=== PATIENT | female | born 1980 | race African-American/Black ===

== ENCOUNTER 2016-08-21 05:47 | Inpatient (IN) | payer OTHER ==
[2016-08-19 15:14] LABS: % IMMATURE GRANULYOCYTES 0.4 % (0.0-1.1); ABSOLUTE IMMATURE GRANULOCYTES 0.02 10^3/uL (0.00-0.10); ADD DIFF? NO; ADD MORPH? NO; ADD SCAN? NO; ATYPICAL LYMPHOCYTE FLAG 20 (0-99); FRAGMENT RBC FLAG 0 (0-99); HEMATOCRIT 37.8 % (38.0-47.0); HEMOGLOBIN 13.1 g/dL (12.6-16.3); LEFT SHIFT FLG 0 (0-99); LIPEMIA HEMOLYSIS FLAG 90 (0-99); MEAN CELL HEMOGLOBIN 28.1 pg (27.9-34.1); MEAN CELL HEMOGLOBIN CONCENTR. 34.7 g/dL (32.4-36.7); MEAN CELL VOLUME 80.9 fL (81.5-99.8); MEAN PLATELET VOLUME 9.5 fL (8.7-11.7); PLATELET CLUMPS FLAG 0 (0-99); PLATELET COUNT 278 10^3/uL (150-400); RED BLOOD CELL COUNT 4.67 10^6/uL (4.18-5.33); RED CELL DISTRIBUTION WIDTH 14.1 % (11.5-15.2)
[2016-08-21] MEDS ORDERED: LIDOCAINE 1% 2 ML INJ ONE (05:53)
[2016-08-21] MEDS ORDERED: LR 1,000 ML IV ONE (06:00)
[2016-08-21] MEDS ORDERED: ceFAZolin 2 GM/DEXTROSE 100 ML IV ONE (06:00)
[2016-08-21] MEDS ORDERED: PHENAZOPYRIDINE HCL 200 MG TAB PO ONE (06:00)
[2016-08-21] MEDS ORDERED: BUPIVACAINE/EPI 0.5% 30 ML SDV ONE (06:45)
[2016-08-21] MEDS ORDERED: VASOPRESSIN 20 UNIT/ML VIAL ONE (06:45)
[2016-08-21] MEDS ORDERED: MIDAZOLAM 2 MG/2 ML VIAL ONE (07:05)
[2016-08-21] MEDS ORDERED: PROPOFOL 200 MG/20 ML VIAL ONE ×2 (07:10→07:50)
[2016-08-21] MEDS ORDERED: fentaNYL 250 MCG/5 ML INJ ONE (07:10)
[2016-08-21] MEDS ORDERED: SURGIFLO MATRIX KIT WITH THROMBIN TP ONE (11:37)
[2016-08-21] MEDS ORDERED: ONDANSETRON 4 MG/2 ML VIAL IVP PRN (11:59)
[2016-08-21] MEDS ORDERED: LR 1,000 ML IV SCH (12:00)
--- NOTE | 2016-08-21 12:03 | POSTOPPROG ---
Post Op Note Date of Operation: 08/21/16 Surgeon: Kehinde Chaney Pool Table Mechanic: Albina Shahid Anesthesia: GET(General Endotracheal) Pre-op Diagnosis: Uterine fibroids, menorrhagia Post-op Diagnosis: Same Procedure: Robotic myomectomies, bilat hypogastric a. ligation, bilat ureterolysis Findings: Fibroids Inf/Abcess present in the surg proc area at time of surgery?: No EBL: 100-500 (500 EBL) Complications: None
[2016-08-21] MEDS ORDERED: fentaNYL 100 MCG/2 ML INJ ONE (12:28)
[2016-08-21] MEDS ORDERED: HYDROmorphONE/DILAUDID 1 MG/ML SYR ONE (12:29)
--- NOTE | 2016-08-21 13:09 | GOP ---
[f rep st] OPERATIVE REPORT DATE OF OPERATION: 08/21/2016 SURGEON: Kehinde Chaney MD ECOLOGIST: Albina Shahid CFA ANESTHESIA: General. PREOPERATIVE DIAGNOSIS: 1. Multiple uterine fibroids. 2. Menorrhagia. 3. Pelvic pain. POSTOPERATIVE DIAGNOSIS: 1. Multiple uterine fibroids. 2. Menorrhagia. 3. Pelvic pain. PROCEDURE PERFORMED: 1. Hysteroscopy. 2. Robotic-assisted laparoscopic myomectomy of multiple fibroids. 3. Bilateral hypogastric artery ligation. 4. Bilateral ureterolysis. FINDINGS: SPECIMENS: Uterine fibroids. ESTIMATED BLOOD LOSS: 500 mL. DESCRIPTION OF PROCEDURE: The patient was taken to the operating room where she was identified. Ge neral anesthesia was administered and found to be adequate. She was placed in the lithotomy positio n and prepared and draped in normal sterile fashion. A diagnostic hysteroscopy was performed to kaitlin luate the submucous component of her fibroids. She had several fibroids that did have a submucous c omponent, but most of the remaining fibroid appeared to be intramural. A Compass-EOSare uterine manipulator was then placed, followed by Davey catheter. A 1 cm midline incision was made approximately 6 cm above the umbilicus. The Veress needle with the CO2 gas flowing was advanced into the peritoneal cavity. The abdomen was then insufflated with car bon dioxide gas. The 12 mm trocar, followed by the laparoscope, was then inserted. The upper abdom en was unremarkable. The patient had a very enlarged multiple fibroid uterus. The ovaries and tube s otherwise were unremarkable. Two lateral ports were placed in the right and 1 on the left under d irect visualization. She then was placed in Trendelenburg position and the da Jeanine robot docked on the left side. The instruments were then brought into the abdominal cavity under direct visualizat ion. The uterus was anteverted. The pelvic brim on the right was incised. The ureter was gently dissect ed free to move it away from the lateral aspects of the fibroids. This was continued down to where it crossed underneath the uterine artery. The hypogastric artery on the right was then isolated, an d a bulldog clamp placed to reduce intraoperative blood loss. A 2nd bulldog clamp was placed to com press the right utero-ovarian vessels. The exact same procedure was performed on the patient's left side, also performing a left ureterolys is and occlusion of the left hypogastric artery. The 4th bulldog clamp was placed between the left ovary and uterus. A dilute solution of vasopressin with saline was injected at the junction of several of the fibroids . The overlying serosa was incised. The fibroids were then gently dissected free, using both sharp and blunt dissection. The fibroids were placed on a Monocryl suture to ensure no fibroids were los t in the abdominal cavity. Approximately 11 different specimens were removed, some of which were mu ltiple fibroids adherent together. Once all the accessible fibroids were removed, the myometrium an d the serosa were closed with multiple running 2-0 V-Loc 90 suture. The robot was then undocked. T he midline incision was extended slightly, and the specimens were removed. The fascia was then clos ed with a running 0 Vicryl suture. The abdomen was re-insufflated. There was some gentle oozing ne ar the fundus of the uterus along the incision. Surgiflo was placed along this area, and no active bleeding was noted. The gas was then expelled. The remaining fascia was closed with 0 Vicryl and s kin with 4-0 Monocryl and surgical adhesive. Anesthesia was reversed and patient was taken to the P ACU awake and in stable condition. COMPLICATIONS: None. DISPOSITION: Patient stable to PACU. /[id number]/MODL
[2016-08-21 15:29] LABS: HEMATOCRIT 32.3 % (38.0-47.0); HEMOGLOBIN 11.4 g/dL (12.6-16.3)
[2016-08-21] MEDS: IBUPROFEN 800 MG TAB PO PRN (18:13)
[2016-08-21] MEDS: HYDROCODONE/APAP 5/325 TAB PO PRN ×2 (18:37→23:21)
[2016-08-21 21:11] LABS: HEMOGLOBIN 10.1 g/dL (12.6-16.3)
[2016-08-22] MEDS: IBUPROFEN 800 MG TAB PO PRN ×4 (00:08→17:53)
[2016-08-22] MEDS: HYDROCODONE/APAP 5/325 TAB PO PRN ×2 (02:49→08:54)
[2016-08-22 06:13] LABS: % IMMATURE GRANULYOCYTES 0.5 % (0.0-1.1); ABSOLUTE IMMATURE GRANULOCYTES 0.05 10^3/uL (0.00-0.10); ADD DIFF? NO; ADD MORPH? NO; ADD SCAN? NO; ATYPICAL LYMPHOCYTE FLAG 0 (0-99); FRAGMENT RBC FLAG 0 (0-99); HEMATOCRIT 25.2 % (38.0-47.0); HEMOGLOBIN 8.9 g/dL (12.6-16.3); LEFT SHIFT FLG 0 (0-99); LIPEMIA HEMOLYSIS FLAG 90 (0-99); MEAN CELL HEMOGLOBIN 28.6 pg (27.9-34.1); MEAN CELL HEMOGLOBIN CONCENTR. 35.3 g/dL (32.4-36.7); MEAN PLATELET VOLUME 9.6 fL (8.7-11.7); PLATELET CLUMPS FLAG 0 (0-99); PLATELET COUNT 229 10^3/uL (150-400); RED BLOOD CELL COUNT 3.11 10^6/uL (4.18-5.33); RED CELL DISTRIBUTION WIDTH 13.9 % (11.5-15.2)
[2016-08-22 10:20] LABS: HEMOGLOBIN 8.8 g/dL (12.6-16.3)
[2016-08-22] MEDS ORDERED: IBUPROFEN 600 MG TAB PO SCH (12:01)
[2016-08-22] MEDS: OXYCODONE/APAP 5/325 TAB PO PRN ×3 (13:10→20:58)
[2016-08-22 14:16] LABS: HEMATOCRIT 26.6 % (38.0-47.0); HEMOGLOBIN 9.2 g/dL (12.6-16.3)
[2016-08-22] MEDS ORDERED: ALBUTEROL 60 PUFFS/8 GM MDI IH PRN (18:50)
[2016-08-22] MEDS ORDERED: FLUTICASONE NASAL 120 SPRAYS/16 GM MDI EACHNARE PRN (18:50)
[2016-08-22] MEDS ORDERED: ALBUTEROL 200 PUFFS/18 GM MDI IH PRN (20:57)
[2016-08-22] MEDS: DOCUSATE SODIUM 100 MG CAP PO SCH (20:58)
[2016-08-23] MEDS: IBUPROFEN 800 MG TAB PO PRN ×4 (00:07→18:20)
[2016-08-23] MEDS: HYDROCODONE/APAP 5/325 TAB PO PRN ×3 (01:07→13:40)
[2016-08-23 06:24] LABS: HEMATOCRIT 24.5 % (38.0-47.0); HEMOGLOBIN 8.2 g/dL (12.6-16.3)
[2016-08-23] MEDS: DOCUSATE SODIUM 100 MG CAP PO SCH (09:00)
--- NOTE | 2016-08-23 16:25 | SOAPPROG ---
SOAP Progress Note Assessment/Plan: Assessment: 08/22/161844 Stable blood count x 3. Will repeat in am. Continue to treat head ache. Not ready for discharge. Reassess in morning. 08/23/16 1628 Doing better after transfusion. Repeat H/H in 1 hour and in am. Plan: 08/22/161844 Reasses in AM. 08/23/16 16:26 Likely home tomorrow. Subjective: 08/22/16 Visit note (not completed yesterday) Pt c/o head ache. Not much abdominal pain. Pierre gen diet. Ambulation. Voiding but slow. Friday08/23/16 Pt had continued head ache and dizziness this morning. I spoke to her on the phone. Given her lower hemoglobin we decided to transfuse 2 units PRBC. The second unit is just completing now. After transfusion this afternoon she is feels much better. Only slight head ache. Objective: Vital Signs Temp Pulse Resp BP Pulse Ox 36.8 C 83 18 117/70 94 08/23/16 08:10 08/23/16 08:10 08/23/16 08:10 08/23/16 08:10 08/23/16 08:10 Laboratory Results 08/23/16 06:00 08/22/16 08/23/16 08/24/16 05:59 05:59 05:59 Intake Total 4000 Output Total 1450 Balance 2550 - Pending Discharge Pending Discharge Within 24 Hours: Yes Pending Discharge Date: 08/24/16 Pending Discharge Time: 11:00 Physical Exam - Physical Exam General Appearance: WD/WN, alert, no apparent distress Respiratory: lungs clear Cardiac/Chest: regular rate, rhythm Abdomen: normal bowel sounds, non-tender, soft (Incisions clean, dry, and intact.) ICD10 Worksheet Patient Problems: Problems Problem Status Onset Intramural leiomyoma of uterus Acute - ICD10 Problem Qualifiers (1) Intramural leiomyoma of uterus
[2016-08-23 17:23] LABS: HEMATOCRIT 31.4 % (38.0-47.0); HEMOGLOBIN 10.9 g/dL (12.6-16.3)
[2016-08-24] MEDS: IBUPROFEN 800 MG TAB PO PRN ×3 (00:10→16:51)
[2016-08-24] MEDS: DOCUSATE SODIUM 100 MG CAP PO SCH ×2 (00:11→10:26)
[2016-08-24] MEDS: HYDROCODONE/APAP 5/325 TAB PO PRN ×2 (05:23→16:53)
[2016-08-24 06:24] LABS: HEMATOCRIT 29.5 % (38.0-47.0); HEMOGLOBIN 10.2 g/dL (12.6-16.3)
[2016-08-24 10:18] VITALS: RESP 16
--- NOTE | 2016-08-24 12:01 | SOAPPROG ---
SOAP Progress Note Assessment/Plan: Assessment: 08/22/161844 Stable blood count x 3. Will repeat in am. Continue to treat head ache. Not ready for discharge. Reassess in morning. 08/23/16 1628 Doing better after transfusion. Repeat H/H in 1 hour and in am. Stable overnight. Pain controlled. Plan: 08/22/161844 Reasses in AM. 08/23/16 16:26 Likely home tomorrow. 08/24/16 11:59 Will recheck H&H now. If stable will consider discharge today. Subjective: [place] great last night. This am some head ache and dizziness but not nearly as bad as yesterday morning. Objective: Vital Signs Temp Pulse Resp BP Pulse Ox 36.5 C 69 16 118/74 97 08/24/16 10:18 08/24/16 10:18 08/24/16 10:18 08/24/16 10:18 08/24/16 10:18 Laboratory Results 08/24/16 06:00 08/23/16 08/24/16 08/25/16 05:59 05:59 05:59 Intake Total 1500 Balance 1500 - Pending Discharge Pending Discharge Within 24 Hours: Yes Pending Discharge Date: 08/25/16 Pending Discharge Time: 11:00 Physical Exam - Physical Exam General Appearance: WD/WN, alert, no apparent distress Respiratory: lungs clear Cardiac/Chest: regular rate, rhythm Abdomen: normal bowel sounds, non-tender, soft ICD10 Worksheet Patient Problems: Problems Problem Status Onset Intramural leiomyoma of uterus Acute - ICD10 Problem Qualifiers (1) Intramural leiomyoma of uterus
[2016-08-24 13:40] LABS: HEMATOCRIT 31.5 % (38.0-47.0); HEMOGLOBIN 10.9 g/dL (12.6-16.3)
[2016-08-24 16:48] VITALS: BP 122/78; PULSE 80; TEMP 97.6; O2SAT 99
== END 2016-08-24 17:10 | disposition home or self-care (01) | DRG 743 ==
LOC: F3E 05:47 → FOB 14:09 → OBSVTOIN 08-23 16:55
PROVIDERS: ADMIT Obstetrics & Gynecology; ATTEND Obstetrics & Gynecology
PROC: 8E0W4CZ Robotic Assisted Procedure of Trunk Region, Percutaneous Endoscopic Approach (ICD-10-PCS; principal; 2016-08-23)
PROC: 30233N1 Transfusion of Nonautologous Red Blood Cells into Peripheral Vein, Percutaneous Approach (ICD-10-PCS; principal; 2016-08-23)
PROC: 0UB94ZZ Excision of Uterus, Percutaneous Endoscopic Approach (ICD-10-PCS; principal; 2016-08-23)
DX: D25.1 Intramural leiomyoma of uterus (principal); N92.0 Excessive and frequent menstruation with regular cycle; R10.2 Pelvic and perineal pain
CPT/HCPCS: G0378; J0690; J1170; J2250; J2405; J2704; J3010; P9016